=== PATIENT | female | born 1955 | race Caucasian/White ===

== ENCOUNTER 2022-02-09 15:12 | Emergency (ER) | payer OTHER ==
[2022-02-09] MEDS ORDERED: NA CHLORIDE 0.9% 1,000 ML ONE (16:28)
[2022-02-09] MEDS ORDERED: MORPHINE 4 MG/ML SYR ONE ×2 (16:28→17:28)
[2022-02-09] MEDS ORDERED: ONDANSETRON 4 MG/2 ML VIAL ONE (16:28)
[2022-02-09 16:54] LABS: Absolute Lymphocytes (CBC) 2.1 K/uL (0.7-4.9); Hematocrit 38.3 % (36.0-45.0); Lymphocytes % 31.5 % (15.3-44.8); MPV 7.8 fL (7.6-11.3); RBC Red Blood Cell Count 4.56 M/uL (3.86-4.86)
[2022-02-09 17:12] LABS: Albumin 3.2 g/dL (3.4-5.0); Bilirubin Total 0.2 mg/dL (0.2-1.0); Potassium 4.2 mmol/L (3.5-5.1)
--- NOTE | 2022-02-09 17:48 | RAD REPORT ---
EXAM DESCRIPTION: CT - Abdomen Pelvis W Contrast - 02/09/2022 5:34 pm CLINICAL HISTORY: LUQ abdominal pain COMPARISON: No comparisons TECHNIQUE: Biphasic, helical CT imaging of the abdomen and pelvis was performed following 100 ml non -ionic IV contrast. No oral contrast was administered. All CT scans are performed using dose optimization technique as appropriate and may include automated exposure control or mA/KV adjustment according to patient size. FINDINGS: No suspicious findings in the lung bases. The liver is abnormal. There are multiple rounded low-density masses scattered in the liver up to 19 mm in size. Margins are ill-defined. No splenic abnormality seen. At the head body junction of the pa ncreas along the superior margin there is a 3.5 x 2.3 centimeter low-density mass. Along the superior margin is a 2.4 centimeter oval low-density mass. Both of these masses are centrally hypodense. Gall bladder is absent. Intrahepatic and extrahepatic biliary tree dilatation are present possibly the res ervoir affect. The. Pancreatic masses do not compress the common bile duct. Pancreatic duct is dilate d in the midline body. Symmetric renal function is seen with no hydronephrosis or suspicious renal mass. No pyelonephritis o r acute parenchymal process. No bladder abnormalities. No adrenal abnormalities. Uterus and ovaries s how no suspicious findings for patient age. Small hiatal hernia is present. Olson of the gastric antrum and duodenal bulb are prominent. This is probably peristalsis artifact. The very pancreatic mass is in proximity. Secondary involvement of the gastric antrum wall is possible but lesser in likelihood. No acute small or large bowel finding. No free air, free fluid or inflammatory stranding. Fat extends into the inguinal canal regions nimo aterally. No omental thickening or bulky lymphadenopathy. No suspicious bony findings. IMPRESSION: Approximately 3.5 centimeter low-density mass along the superior margin of the pancreati c head - body junction. There is an adjacent 2.4 centimeter mass that is likely a necrotic lymph node . Multiple irregular low-density lesions scattered in the liver. The most likely etiology is that the peripancreatic mass is of pancreatic origin. Liver lesions are most likely metastatic.
--- NOTE | 2022-02-09 18:41 | EDPHYS ---
Physician Documentation [facility] Name: Christelle Almanza Age: 66 yrs Sex: Female : 1955 Arrival Date: 02/09/2022 Time: 15:15 Bed 12 Private MD: ED Physician Porfirio Núñez HPI: 02/09 16:05 This 66 yrs old Female presents to ER via Ambulatory with complaints of Epigastric pm1 Pain, Back Pain. 16:05 The patient presents with abdominal pain. pm1 16:05 Onset: The symptoms/episode began/occurred 2 week(s) ago. Associated signs and pm1 symptoms: Pertinent negatives: nausea, vomiting, and diarrhea, chest pain, shortness of breath. The symptoms are described as sharp. Modifying factors: The symptoms are alleviated by nothing, the symptoms are aggravated by nothing. Severity of pain: in the emergency department the pain is actually worse. The patient has not experienced similar symptoms in the past. The patient has been recently seen by a physician: diagnosed with pancreatic cancer 2 weeks ago. Has appointment with oncologist on Thursday. Historical: - Allergies: 15:46 No Known Allergies; vg1 - PMHx: 15:46 PANCREATIC CANCER; vg1 - PSHx: 15:46 Cholecystectomy; vg1 - Immunization history:: Client reports having NOT received the Covid vaccine. - Social history:: Smoking status: Patient denies any tobacco usage or history of. ROS: 16:05 Constitutional: Negative for fever, chills, and weight loss, Cardiovascular: Negative pm1 for chest pain, palpitations, and edema, Respiratory: Negative for shortness of breath, cough, wheezing, and pleuritic chest pain. 16:05 Back: Negative for injury and pain, : Negative for injury, bleeding, discharge, and swelling, MS/Extremity: Negative for injury and deformity, Skin: Negative for injury, rash, and discoloration, Neuro: Negative for headache, weakness, numbness, tingling, and seizure. 16:05 Abdomen/GI: Positive for abdominal pain, of the epigastric area and left upper quadrant, Negative for nausea, vomiting, and diarrhea. 16:05 All other systems are negative. Exam: 16:05 Constitutional: This is a well developed, well nourished patient who is awake, alert, pm1 and in no acute distress. Head/Face: Normocephalic, atraumatic. 16:05 Back: No spinal tenderness. No costovertebral tenderness. Full range of motion. Skin: Warm, dry with normal turgor. Normal color with no rashes, no lesions, and no evidence of cellulitis. MS/ Extremity: Pulses equal, no cyanosis. Neurovascular intact. Full, normal range of motion. 16:05 Cardiovascular: Exam negative for acute changes, Rate: normal, Rhythm: regular, Pulses: no pulse deficits are appreciated. 16:05 Respiratory: Exam negative for acute changes, respiratory distress, shortness of breath. 16:05 Abdomen/GI: Inspection: abdomen appears normal, Palpation: soft, in all quadrants, mild abdominal tenderness, in the left upper quadrant. 16:05 Neuro: Exam negative for acute changes, Orientation: is normal, Mentation: is normal, Motor: moves all fours. Vital Signs: 15:44 BP 142 / 80; Pulse 69; Resp 16; Temp 98.5(O); Pulse Ox 100% on R/A; Weight 72.57 kg; vg1 Height 5 ft. 5 in. (165.10 cm); Pain 8/10; 17:14 BP 138 / 72; Pulse 68; Resp 18 S; Pulse Ox 100% on R/A; jd3 18:53 BP 129 / 68; Pulse 67; Resp 16 S; Pulse Ox 100% on R/A; jd3 15:44 Body Mass Index 26.63 (72.57 kg, 165.10 cm) vg1 MDM: 15:56 Patient medically screened. pm1 18:37 Data reviewed: vital signs. Data interpreted: Pulse oximetry: on room air is 100 %. pm1 Interpretation: normal. Counseling: I had a detailed discussion with the patient and/or guardian regarding: the historical points, exam findings, and any diagnostic results supporting the discharge/admit diagnosis, lab results, radiology results, the need for outpatient follow up, to return to the emergency department if symptoms worsen or persist or if there are any questions or concerns that arise at home. 02/09 16:05 Order name: CBC with Diff; Complete Time: 17:02 pm1 02/09 16:05 Order name: CMP; Complete Time: 17:17 pm1 02/09 16:05 Order name: Lipase; Complete Time: 17:17 pm1 02/09 16:05 Order name: CT Abd/Pelvis - IV Contrast Only; Complete Time: 18:01 pm1 02/09 16:05 Order name: IV Saline Lock; Complete Time: 16:20 pm1 02/09 16:05 Order name: Labs collected and sent; Complete Time: 16:20 pm1 Administered Medications: 16:25 Drug: NS 0.9% 1000 ml Route: IV; Rate: 1 bolus; Site: right forearm; jd3 17:25 Follow up: Response: No adverse reaction; IV Status: Completed infusion; IV Intake: jd3 1000ml 16:25 Drug: morphine 4 mg Route: IVP; Infused Over: 4 mins; Site: right forearm; jd3 17:20 Follow up: Response: No adverse reaction; RASS: Alert and Calm (0) jd3 16:26 Drug: Zofran (Ondansetron) 4 mg Route: IVP; Site: right forearm; jd3 17:20 Follow up: Response: No adverse reaction jd3 17:25 Drug: morphine 4 mg Route: IVP; Infused Over: 4 mins; Site: right forearm; jd3 18:20 Follow up: Response: No adverse reaction; RASS: Alert and Calm (0) jd3 Disposition Summary: 02/09/22 18:40 Discharge Ordered Location: Home pm1 Problem: new pm1 Symptoms: have improved pm1 Condition: Stable pm1 Diagnosis - Metastatic pancreatic cancer pm1 - Abdominal pain, unspecified pm1 Followup: pm1 - With: Emergency Department - When: As needed - Reason: Worsening of condition Followup: pm1 - With: Private Physician - When: 2 - 3 days - Reason: Recheck today's complaints, Continuance of care, Re-evaluation by your physician Discharge Instructions: - Discharge Summary Sheet pm1 - Abdominal Pain, Adult pm1 - Pancreatic Cancer pm1 Forms: - Medication Reconciliation Form pm1 - Thank You Letter pm1 - Antibiotic Education pm1 - Prescription Opioid Use pm1 Prescriptions: - Tylenol-Codeine #3 300 mg-30 mg Oral - take 2 tablet by ORAL route every 6 hours As needed; 20 tablet; Refills: 0, pm1 Product Selection Permitted Signatures: Dispatcher [employer] EDByron Moran, [employer] pm1 Bennett Fisher RN RN jd3 Kelvin, Jerri, RN RN vg1
--- NOTE | 2022-02-09 18:41 | ER ---
Nurse's Notes [facility] Name: Christelle Almanza Age: 66 yrs Sex: Female : 1955 Arrival Date: 02/09/2022 Time: 15:15 Bed 12 Private MD: Diagnosis: Metastatic pancreatic cancer;Abdominal pain, unspecified Presentation: 02/09 15:44 Chief complaint: Patient states: dx with Pancreatic Cancer on 01/30/2022; states was vg1 told to come to ED if pain becomes unbearable; c/o epigastric and LUQ pain that radiates to the back with nausea, denies V/D. Coronavirus screen: Vaccine status: Patient reports being unvaccinated. Client denies travel out of the [place] in the last 14 days. Ebola Screen: Patient denies exposure to infectious person. Patient denies travel to an Ebola-affected area in the 21 days before illness onset. Initial Sepsis Screen: Does the patient meet any 2 criteria? No. Patient's initial sepsis screen is negative. Does the patient have a suspected source of infection? No. Patient's initial sepsis screen is negative. Risk Assessment: Do you want to hurt yourself or someone else? Patient reports no desire to harm self or others. Onset of symptoms was January 30, 2022. 15:44 Method Of Arrival: Ambulatory vg1 15:44 Acuity: JUAN 3 vg1 Triage Assessment: 15:46 General: Appears uncomfortable, Behavior is cooperative. Pain: Complains of pain in vg1 epigastric area and left upper quadrant Pain currently is 8 out of 10 on a pain scale. GI: Abdomen is round non-distended, Reports nausea. Historical: - Allergies: 15:46 No Known Allergies; vg1 - PMHx: 15:46 PANCREATIC CANCER; vg1 - PSHx: 15:46 Cholecystectomy; vg1 - Immunization history:: Client reports having NOT received the Covid vaccine. - Social history:: Smoking status: Patient denies any tobacco usage or history of. Screenin:32 Abuse screen: Denies threats or abuse. Nutritional screening: No deficits noted. jd3 Tuberculosis screening: No symptoms or risk factors identified. Fall Risk Ambulatory Aid- None/Bed Rest/Nurse Assist (0 pts). Gait- Normal/Bed Rest/Wheelchair (0 pts) Mental Status- Oriented to own ability (0 pts). Total Medina Fall Scale indicates No Risk (0-24 pts). Assessment: 16:31 General: Appears in no apparent distress. comfortable, Behavior is calm, cooperative, jd3 appropriate for age. Pain: Complains of pain in abdomen Quality of pain is described as sharp, tender. Neuro: Rivas Agitation-Sedation Scale (RASS): 0 - Alert and Calm Level of Consciousness is awake, alert, obeys commands, Oriented to person, place, time, situation. Cardiovascular: Capillary refill < 3 seconds Patient's skin is warm and dry. Respiratory: Airway is patent Respiratory effort is even, unlabored, Respiratory pattern is regular, symmetrical. GI: Abdomen is non-distended, Reports lower abdominal pain, upper abdominal pain, nausea. : No signs and/or symptoms were reported regarding the genitourinary system. EENT: No signs and/or symptoms were reported regarding the EENT system. Derm: Skin is intact, Skin is dry, Skin is normal, Skin temperature is warm. Musculoskeletal: Circulation, motion, and sensation intact. Range of motion: intact in all extremities. 17:14 Reassessment: Patient appears in no apparent distress at this time. Patient and/or jd3 family updated on plan of care and expected duration. Pain level reassessed. Patient is alert, oriented x 3, equal unlabored respirations, skin warm/dry/pink. reporting continued pain, provider notified. 18:52 Reassessment: Patient appears in no apparent distress at this time. Patient and/or jd3 family updated on plan of care and expected duration. Pain level reassessed. Patient is alert, oriented x 3, equal unlabored respirations, skin warm/dry/pink. Patient states feeling better. Vital Signs: 15:44 BP 142 / 80; Pulse 69; Resp 16; Temp 98.5(O); Pulse Ox 100% on R/A; Weight 72.57 kg; vg1 Height 5 ft. 5 in. (165.10 cm); Pain 8/10; 17:14 BP 138 / 72; Pulse 68; Resp 18 S; Pulse Ox 100% on R/A; jd3 18:53 BP 129 / 68; Pulse 67; Resp 16 S; Pulse Ox 100% on R/A; jd3 15:44 Body Mass Index 26.63 (72.57 kg, 165.10 cm) vg1 ED Course: 15:15 Patient arrived in ED. as 15:46 Triage completed. vg1 15:46 Arm band placed on. vg1 15:49 Byron Benitez NP is PHCP. pm1 15:49 Porfirio Núñez MD is Attending Physician. pm1 16:00 Bennett Fisher RN is Primary Nurse. jd3 16:20 Inserted saline lock: 22 gauge in right forearm, using aseptic technique. Blood jd3 collected. 16:33 Patient has correct armband on for positive identification. Bed in low position. Call jd3 light in reach. Side rails up X 1. Adult w/ patient. Pulse ox on. NIBP on. 17:36 CT Abd/Pelvis - IV Contrast Only In Process Unspecified. EDMS 18:51 No provider procedures requiring assistance completed. IV discontinued, intact, jd3 bleeding controlled, No redness/swelling at site. Pressure dressing applied. Administered Medications: 16:25 Drug: NS 0.9% 1000 ml Route: IV; Rate: 1 bolus; Site: right forearm; jd3 17:25 Follow up: Response: No adverse reaction; IV Status: Completed infusion; IV Intake: jd3 1000ml 16:25 Drug: morphine 4 mg Route: IVP; Infused Over: 4 mins; Site: right forearm; jd3 17:20 Follow up: Response: No adverse reaction; RASS: Alert and Calm (0) jd3 16:26 Drug: Zofran (Ondansetron) 4 mg Route: IVP; Site: right forearm; jd3 17:20 Follow up: Response: No adverse reaction jd3 17:25 Drug: morphine 4 mg Route: IVP; Infused Over: 4 mins; Site: right forearm; jd3 18:20 Follow up: Response: No adverse reaction; RASS: Alert and Calm (0) jd3 Medication: 16:32 VIS not applicable for this client. jd3 Intake: 17:25 IV: 1000ml; Total: 1000ml. jd3 Outcome: 18:40 Discharge ordered by . pm1 18:52 Discharged to home ambulatory, with family. jd3 18:52 Condition: stable 18:52 Discharge instructions given to patient, family, Instructed on discharge instructions, follow up and referral plans. medication usage, Demonstrated understanding of instructions, follow-up care, medications, Prescriptions given X 1. 18:53 Patient left the ED. jd3 Signatures: Dispatcher [employer] Thu Andres Patrick, [employer] ENGINEER pm1 Bennett Fisher RN RN jd3 Jerri Warren RN RN vg1
[2022-02-09 19:23] VITALS: TEMP 98.5; O2SAT 100
[2022-02-09 19:27] VITALS: BP 129/68
== END 2022-02-09 18:53 | disposition home or self-care (01) ==
LOC: ER 15:12
DX: C25.9 Malignant neoplasm of pancreas, unspecified (principal); R10.12 Left upper quadrant pain; R10.13 Epigastric pain
CPT/HCPCS: 96361; 85025; 36415; 83690; 80053; 74177; 96375; 96374; 99284; Q9967; J7030; J2405

== ENCOUNTER 2022-02-19 19:11 | Emergency (ER) | payer OTHER ==
[2022-02-19] MEDS ORDERED: MORPHINE 4 MG/ML SYR ONE ×2 (20:57→23:29)
[2022-02-19] MEDS ORDERED: ONDANSETRON 4 MG/2 ML VIAL ONE (20:57)
[2022-02-19 21:23] LABS: Absolute Lymphocytes (CBC) 1.9 K/uL (0.7-4.9); Hematocrit 40.4 % (36.0-45.0); Lymphocytes % 23.3 % (15.3-44.8); MCV 84.9 fL (80-100); MPV 7.4 fL (7.6-11.3); RBC Red Blood Cell Count 4.76 M/uL (3.86-4.86)
[2022-02-19 21:28] LABS: Protime INR 1.15
[2022-02-19 21:38] LABS: Bilirubin Total 0.5 mg/dL (0.2-1.0); Potassium 4.1 mmol/L (3.5-5.1); Protein, Total 8.5 g/dL (6.4-8.2); Troponin High Sensitivity 17.7 pg/mL (<58.9)
--- NOTE | 2022-02-19 22:03 | RAD REPORT ---
EXAM DESCRIPTION: CTAbdomen Pelvis W Contrast - 02/19/2022 9:53 pm CLINICAL HISTORY: Abdominal pain. Epigastric pain COMPARISON: Abdomen Pelvis W Contrast dated 02/09/2022 TECHNIQUE: Biphasic CT imaging of the abdomen and pelvis was performed with 100 ml non-ionic IV cont rast. All CT scans are performed using dose optimization technique as appropriate and may include automated exposure control or mA/KV adjustment according to patient size. FINDINGS: The lung bases are clear. Cholecystectomy. Again noted are multiple low-density liver lesions which have mildly increased in si ze and number since the comparative study most compatible metastatic disease. Mild biliary dilatation is noted in the liver particularly the left lobe. Pancreatic mass with necrosis again noted at the junction of the body and head of the pancreas, mildl y increased in size currently measuring 39 x 32 mm, previously 35 x 23 mm. Necrotic peripancreatic ly mph node again seen measuring 31 mm. Additional necrotic appearing mass in the peripancreatic fat mora ng the margin of the stomach also again seen measuring 31 mm. No bowel obstruction, free air, free fluid or abscess. Sigmoid diverticulosis coli is present without diverticulitis. The appendix is normal. No suspicious bony findings. IMPRESSION: Mild disease progression has occurred since the comparative study. No acute intra-abdominal finding.
[2022-02-19 23:02] LABS: Urine Blood Negative (Negative); Urine Glucose Negative (Negative); Urine Protein 1+ (Negative); Urine Specific Gravity 1.025 (1.005-1.030)
[2022-02-19] MEDS ORDERED: PROMETHAZINE INJ 25 MG/ML AMP ONE (23:28)
[2022-02-19 23:31] LABS: Urine Bacteria >50 /HPF (<20); Urine RBC <5 /HPF (NONE SEEN)
--- NOTE | 2022-02-20 00:22 | ER ---
Nurse's Notes [facility] Name: Christelle Almanza Age: 66 yrs Sex: Female : 1955 Arrival Date: 02/19/2022 Time: 19:34 Bed 6 Private MD: Diagnosis: UTI/ Urinary tract infection, site not specified;Metastatic Pancreatic Cancer;Nausea with vomiting, unspecified Presentation: 02/19 19:36 Chief complaint: Patient states: Intermittent abd pain that began over 3 weeks ago. Pt ss was diagnosed 3 weeks ago with pancreatic CA with mets to her liver. Pt reports that her pain has gotten much worse today. Coronavirus screen: Client denies travel out of the [place] in the last 14 days. Ebola Screen: Patient denies exposure to infectious person. Patient denies travel to an Ebola-affected area in the 21 days before illness onset. Initial Sepsis Screen: Does the patient meet any 2 criteria? No. Patient's initial sepsis screen is negative. Does the patient have a suspected source of infection? No. Patient's initial sepsis screen is negative. Risk Assessment: Do you want to hurt yourself or someone else? Patient reports no desire to harm self or others. Onset of symptoms was January 2022. 19:36 Method Of Arrival: EMS: [facility] 19:36 Acuity: JUAN 3 ss Triage Assessment: 23:02 General: Appears in no apparent distress. uncomfortable, Behavior is calm, cooperative, tw5 appropriate for age. Historical: - Allergies: 19:37 No Known Allergies; ss - PMHx: 19:37 pancreatic cancer; ss - PSHx: 19:37 Cholecystectomy; ss - Immunization history:: Flu vaccine is not up to date. - Social history:: Smoking status: Patient denies any tobacco usage or history of. Screenin:00 Abuse screen: Denies threats or abuse. Denies injuries from another. Nutritional tw5 screening: No deficits noted. Tuberculosis screening: No symptoms or risk factors identified. Fall Risk No fall in past 12 months (0 pts). Assessment: 21:00 General: Reports "I have been diagnosed with pancreatic cancer and my pains are getting tw5 worse. I cannot get into [facility] until next Thursday.". Pain: Complains of pain in right upper quadrant Pain radiates to right mid back Pain currently is 8 out of 10 on a pain scale. Neuro: Level of Consciousness is awake, alert, obeys commands, Oriented to person, place, time, situation. GI: Bowel sounds present X 4 quads. Abdomen is tender to palpation in right upper quadrant. Vital Signs: 19:36 BP 114 / 68; Pulse 86; Resp 16; Temp 97.9(TE); Pulse Ox 100% on R/A; Weight 73.03 kg; ss Height 5 ft. 5 in. (165.10 cm); Pain 9/10; 20:58 Temp 98.1(TE); kd3 21:00 BP 137 / 67; Pulse 83; Resp 20; Pulse Ox 100% on R/A; Pain 8/10; tw5 23:19 Pulse 75; Resp 12; Pulse Ox 98% on R/A; kd3 23:57 BP 130 / 61; Pulse 90; Resp 20; Pulse Ox 98% on R/A; kd3 19:36 Body Mass Index 26.79 (73.03 kg, 165.10 cm) ED Course: 19:34 Patient arrived in ED. rn 19:35 Benedict Lambert PA is PHCP. cp 19:35 Nael Royal MD is Attending Physician. cp 19:37 Triage completed. ss 19:37 Arm band placed on right wrist. ss 20:48 Rosey Lara is Primary Nurse. tw5 21:00 Awaiting lab results. tw5 21:00 Patient has correct armband on for positive identification. Placed in gown. Bed in low tw5 position. Call light in reach. Side rails up X2. Client placed on continuous cardiac and pulse oximetry monitoring. NIBP monitoring applied. Door closed. Noise minimized. Lights dimmed. Moved to private room. Warm blanket given. Verbal reassurance given. 21:00 Initial lab(s) drawn, by me, sent to lab. Maintain EMS IV. Dressing intact. Good blood tw5 return noted. Site clean \\T\\ dry. Gauge \\T\\ site: 20 Left forearm. 21:03 Lactate Sent. tw5 21:03 PT-INR Sent. tw5 21:03 CBC with Diff Sent. tw5 21:03 CMP Sent. tw5 21:55 CT Abd/Pelvis - IV Contrast Only In Process Unspecified. EDMS 23:58 Primary Nurse role handed off by Rosey Lara kd3 23:58 Hilda Bunrett, RN is Primary Nurse. kd3 02/20 00:38 No provider procedures requiring assistance completed. IV discontinued, intact, kd3 bleeding controlled, No redness/swelling at site. Pressure dressing applied. Administered Medications: 02/19 21:09 Drug: Zofran (Ondansetron) 4 mg Route: IVP; Site: left forearm; tw5 21:09 Drug: morphine 4 mg Route: IVP; Infused Over: 4 mins; Site: left forearm; tw5 23:27 Drug: morphine 4 mg Route: IVP; Infused Over: 4 mins; Site: left forearm; kd3 23:28 Drug: Phenergan (promethazine) 12.5 mg Route: IVP; Site: left femoral; kd3 02/20 00:24 Drug: Rocephin - (cefTRIAXone) 1 grams Route: IVPB; Infused Over: 30 mins; Site: left kd3 forearm; 00:39 Follow up: Response: No adverse reaction; IV Status: Completed infusion kd3 Medication: 02/19 21:00 VIS not applicable for this client. tw5 Outcome: 02/20 00:21 Discharge ordered by . kaylan 00:38 Discharged to home ambulatory. kd3 00:38 Condition: stable 00:38 Discharge instructions given to patient, family, Instructed on discharge instructions, follow up and referral plans. medication usage, Demonstrated understanding of instructions, follow-up care, medications, Prescriptions given X 2. 00:42 Patient left the ED. kd3 Signatures: Dispatcher [employer] EDMS Nael Royal MD MD rn Smirch, Shelby, RN RN ss Page, Corey, PA PA cp Wood, Tiffany tw5 Hilda Burnett, ADDISON RN kd3
--- NOTE | 2022-02-20 00:22 | EDPHYS ---
Physician Documentation [facility] Name: Christelle Almanza Age: 66 yrs Sex: Female : 1955 Arrival Date: 02/19/2022 Time: 19:34 Bed 6 Private MD: ED Physician Nael Royal HPI: 02/19 19:45 This 66 yrs old Female presents to ER via EMS with complaints of Abdominal Pain. cp 19:45 The patient presents with abdominal pain in the epigastric area, in the upper abdomen. cp 19:45 Onset: The symptoms/episode began/occurred gradually, and became worse today. cp 19:45 The symptoms radiate to back. Associated signs and symptoms: Pertinent positives: cp nausea and vomiting. The symptoms are described as constant. Severity of pain: in the emergency department the pain is unchanged despite home interventions. Patient reports recent diagnosis 3 weeks ago for metastatic pancreatic cancer. Patient reports she is not currently on chemo or receiving radiation therapy. Patient denies fever, chest pain. Historical: - Allergies: 19:37 No Known Allergies; ss - PMHx: 19:37 pancreatic cancer; ss - PSHx: 19:37 Cholecystectomy; ss - Immunization history:: Flu vaccine is not up to date. - Social history:: Smoking status: Patient denies any tobacco usage or history of. ROS: 19:50 Constitutional: Negative for body aches, chills, fever. cp 19:50 Eyes: Negative for injury, pain, redness, and discharge. cp 19:50 Cardiovascular: Negative for chest pain, edema, palpitations. 19:50 Abdomen/GI: Positive for abdominal pain, nausea and vomiting, Negative for diarrhea, constipation, hematemesis, black/tarry stool, rectal bleeding. 19:50 Respiratory: Negative for cough, shortness of breath, wheezing. cp 19:50 ENT: Negative for drainage from ear(s), ear pain, sore throat, difficulty swallowing, cp difficulty handling secretions. 19:50 Back: Positive for radiated pain, Negative for injury or acute deformity, decreased range of motion. 19:50 : Negative for hematuria, burning with urination, difficulty urinating. 19:50 Skin: Negative for cellulitis, rash. 19:50 Neuro: Negative for altered mental status, dizziness, headache, weakness. 19:50 All other systems are negative. Exam: 19:55 Constitutional: The patient appears in no acute distress, alert, awake, cp non-diaphoretic, non-toxic, well developed, well nourished, uncomfortable. 19:55 Head/Face: Normocephalic, atraumatic. cp 19:55 Eyes: Periorbital structures: appear normal, Conjunctiva: normal, no exudate, no injection, Sclera: no appreciated abnormality, Lids and lashes: appear normal, bilaterally. 19:55 ENT: External ear(s): are unremarkable, Nose: is normal, Mouth: Lips: moist, Oral mucosa: pink and intact, moist, Posterior pharynx: Airway: no evidence of obstruction, patent. 19:55 Neck: ROM/movement: is normal, is supple, without pain, no range of motions limitations. 19:55 Chest/axilla: Inspection: normal. 19:55 Cardiovascular: Rate: normal, Rhythm: regular, Edema: is not appreciated, JVD: is not appreciated. 19:55 Respiratory: the patient does not display signs of respiratory distress, Respirations: normal, no use of accessory muscles, no retractions, labored breathing, is not present, Breath sounds: are clear throughout, no decreased breath sounds, no stridor, no wheezing. 19:55 Abdomen/GI: Inspection: abdomen appears normal, Bowel sounds: active, all quadrants, Palpation: soft, in all quadrants, severe abdominal tenderness, in the epigastric area, rebound tenderness, is not appreciated, voluntary guarding, is elicited in the epigastric area. 19:55 Back: CVA tenderness, is absent. 19:55 Skin: cellulitis, is not appreciated, no rash present. 19:55 Neuro: Orientation: to person, place \T\ time. Mentation: is normal, Motor: moves all fours, strength is normal, Sensation: is normal. 21:37 ECG was reviewed by the Attending Physician. cp Vital Signs: 19:36 BP 114 / 68; Pulse 86; Resp 16; Temp 97.9(TE); Pulse Ox 100% on R/A; Weight 73.03 kg; ss Height 5 ft. 5 in. (165.10 cm); Pain 9/10; 20:58 Temp 98.1(TE); kd3 21:00 BP 137 / 67; Pulse 83; Resp 20; Pulse Ox 100% on R/A; Pain 8/10; tw5 23:19 Pulse 75; Resp 12; Pulse Ox 98% on R/A; kd3 23:57 BP 130 / 61; Pulse 90; Resp 20; Pulse Ox 98% on R/A; kd3 19:36 Body Mass Index 26.79 (73.03 kg, 165.10 cm) ss MDM: 22:58 Patient medically screened. cp 23:00 Differential diagnosis: gastritis, GI Bleed, pancreatitis, Peptic Ulcer Disease, Perf. cp Duodenal Ulcer, Perf. Gastric Ulcer, Pyelonephritis, Ureterolithiasis, urinary tract infection. 02/20 00:20 Data reviewed: vital signs, nurses notes, lab test result(s), radiologic studies, CT cp scan, I have discussed the patient's presentation/case with the attending Emergency Department Physician;. 00:20 Counseling: I had a detailed discussion with the patient and/or guardian regarding: the cp historical points, exam findings, and any diagnostic results supporting the discharge/admit diagnosis, lab results, radiology results, the need for outpatient follow up, oncology, to return to the emergency department if symptoms worsen or persist or if there are any questions or concerns that arise at home. Response to treatment: the patient's symptoms have markedly improved after treatment, VSS. Pain markedly improved and vomiting resolved. Will discharge to home for continued monitoring. 02/19 19:42 Order name: CBC with Diff; Complete Time: 22:03 cp 02/19 22:03 Interpretation: Normal except: PLT 336; MPV 7.4. cp 02/19 19:42 Order name: CMP; Complete Time: 22:03 02/19 22:03 Interpretation: Normal except: NA 135; GFR 88; ALK 388; TP 8.5; ALB 3.0; A/G 0.5; GLOB cp 5.5. 02/19 19:42 Order name: Lipase; Complete Time: 22:03 cp 02/19 22:03 Interpretation: LIP 64; Reviewed. 02/19 19:42 Order name: Urine Microscopic Only; Complete Time: 00:16 cp 02/20 00:16 Interpretation: Normal except: UBACT >50. cp 02/19 19:42 Order name: Troponin High Sensitivity; Complete Time: 22:03 cp 02/19 19:42 Order name: PT-INR; Complete Time: 22:03 cp 02/19 19:42 Order name: CT Abd/Pelvis - IV Contrast Only; Complete Time: 22:28 cp 02/19 22:29 Interpretation: Report reviewed. 02/19 19:42 Order name: Lactate; Complete Time: 22:03 02/19 22:03 Interpretation: LAC 1.5; Reviewed. 02/19 23:03 Order name: Urine Dipstick-Ancillary; Complete Time: 23:11 EDWA 02/19 23:34 Order name: Urine Culture EDWA 02/19 19:42 Order name: IV Saline Lock; Complete Time: 21:03 02/19 19:42 Order name: Labs collected and sent; Complete Time: 21:03 02/19 19:42 Order name: Urine Dipstick-Ancillary (obtain specimen); Complete Time: 23:10 02/19 19:42 Order name: EKG; Complete Time: 19:43 02/19 19:42 Order name: EKG - Nurse/Tech; Complete Time: 22:49 02/20 00:17 Order name: PO challenge; Complete Time: 00:24 cp EC/06 21:37 Rate is 92 beats/min. Rhythm is regular. OH interval is normal. QRS interval is normal. cp QT interval is normal. T waves are Inverted in lead aVL. Interpreted by me. Reviewed by me. Administered Medications: 21:09 Drug: Zofran (Ondansetron) 4 mg Route: IVP; Site: left forearm; tw5 21:09 Drug: morphine 4 mg Route: IVP; Infused Over: 4 mins; Site: left forearm; tw5 23:27 Drug: morphine 4 mg Route: IVP; Infused Over: 4 mins; Site: left forearm; kd3 23:28 Drug: Phenergan (promethazine) 12.5 mg Route: IVP; Site: left femoral; kd3 02/20 00:24 Drug: Rocephin - (cefTRIAXone) 1 grams Route: IVPB; Infused Over: 30 mins; Site: left kd3 forearm; 00:39 Follow up: Response: No adverse reaction; IV Status: Completed infusion kd3 Disposition: 04:39 Co-signature as Attending Physician, Nael Royal MD. rn Disposition Summary: 02/20/22 00:21 Discharge Ordered Location: Home cp Problem: new cp Symptoms: have improved cp Condition: Stable cp Diagnosis - UTI/ Urinary tract infection, site not specified cp - Metastatic Pancreatic Cancer cp - Nausea with vomiting, unspecified cp Followup: cp - With: Private Physician - When: 1 - 2 days - Reason: Recheck today's complaints Discharge Instructions: - Discharge Summary Sheet cp - Nausea and Vomiting, Adult cp - Urinary Tract Infection, Adult cp - Pancreatic Cancer cp Forms: - Medication Reconciliation Form cp - Thank You Letter cp - Antibiotic Education cp - Prescription Opioid Use cp Prescriptions: - Bactrim DS 800-160 mg Oral Tablet - take 1 tablet by ORAL route every 12 hours for 7 days; 14 tablet; Refills: 0, cp Product Selection Permitted - promethazine 25 mg Oral Tablet - take 1 tablet by ORAL route every 6 hours As needed; 20 tablet; Refills: 0, cp Product Selection Permitted Signatures: Dispatcher [employer] EDNael Raines MD MD rn Smirch, Shelby, RN RN ss Page, Corey, PA PA cp Wood, Tiffany tw5 Hilda Burnett RN RN kd3
[2022-02-20] MEDS ORDERED: NA CHLORIDE 0.9% 50 ML ONE (00:28)
[2022-02-20] MEDS ORDERED: CEFTRIAXONE 1000 MG/VIAL ONE (00:28)
[2022-02-20 01:42] VITALS: TEMP 98.1
[2022-02-20 01:45] VITALS: O2SAT 98
[2022-02-20 01:47] VITALS: BP 130/61
--- NOTE | 2022-02-20 13:52 | EKG ---
Test Date: 2022-02-19 Test Time: 21:31:33 Plant Pathologist: SRINATH MEASUREMENT RESULTS: Intervals: Rate: 92 RI: 146 QRSD: 78 QT: 366 QTc: 452 [place]: P: 62 RI: 146 QRS: 35 T: 69 INTERPRETIVE STATEMENTS: Normal sinus rhythm Nonspecific ST and T wave abnormality Abnormal ECG Compared to ECG 11/29/2005 12:51:04 ST (T wave) deviation now present Electronically Signed On 02-20-22 13:50:36 CDT by Hamzah King
== END 2022-02-20 00:42 | disposition home or self-care (01) ==
LOC: ER 19:11
DX: N39.0 Urinary tract infection, site not specified (principal); C78.7 Secondary malignant neoplasm of liver and intrahepatic bile duct; C25.9 Malignant neoplasm of pancreas, unspecified; R11.2 Nausea with vomiting, unspecified
CPT/HCPCS: 93005; 87088; 85025; 87086; 36415; 85610; 83605; 84484; 83690; 80053; 74177; Q9967; J2550; J2405; 81003; 81015